=== PATIENT | male | born 1970 | race Caucasian/White ===

== ENCOUNTER 2020-02-27 20:23 | Outpatient (REF) | payer SELFPAY ==
[2020-02-27 21:36] LABS: Calculated LDL 99 mg/dL (<100); Cholesterol 165 mg/dL (<200); HDL Cholesterol 52 mg/dL (40-60); Triglyceride 72 mg/dL (<150)
[2020-02-27 21:38] LABS: Absolute Basophil Count 0.01 k/cumm (0.0-0.2); Absolute Eosinophil Count 0.07 k/cumm (0.0-0.7); Absolute Lymphocyte Count 2.25 k/cumm (1.2-3.4); Absolute Monocyte Count 0.77 k/cumm (0.11-0.7); Basophils % 0.2; Eosinophils % 1.2; HCT 39.8 % (40.0-50.0); HGB 14.4 g/dL (13.5-17.5); Lymphocytes % 39.5; Mean Corp. HGB Concentration 36.2 g/dL (32.0-36.0); Mean Corpuscular Hemoglobin 35.4 pg (27.0-33.0); Mean Corpuscular Volume 97.8 fL (80-95); Monocytes % 13.5; Neutrophils % 45.6; Platelet Count 306 x1000/uL (130-400); RBC 4.07 m/cumm (4.50-6.00); RBC Distribution Width 11.6 % (11.8-14.1)
== END 2020-02-27 20:43 ==
LOC: NCHCN 20:23
PROVIDERS: PCP Nurse Practitioner Family; Visit Provider Nurse Practitioner Family
DX: I10 Essential (primary) hypertension (principal)
CPT/HCPCS: 80061; 85025

== ENCOUNTER 2020-03-04 20:34 | Outpatient (REF) | payer SELFPAY ==
[2020-03-04 20:34] LABS: ALT 71 U/L (16-63); AST 45 U/L (15-37); Albumin 4.2 g/dL (3.4-5.0); Alkaline Phosphatase 102 U/L (46-116); Amylase 38 U/L (25-115); Anion Gap 7.3 mmol/L (3-11); BUN 14 mg/dL (7-18); Bilirubin, Total 0.9 mg/dL (0.2-1.0); CO2 28.7 mmol/L (21.0-32.0); CREATININE 0.89 mg/dL (0.70-1.30); Calcium 9.7 mg/dL (8.5-10.1); Chloride 100 mmol/L (98-107); Glucose 224 mg/dL (74-106); Lipase 55 U/L (73-393); Potassium 4.1 mmol/L (3.5-5.1); Sodium 136 mmol/L (136-145); TSH (W/Ref FT4) 1.25 uIU/mL (0.36-3.74); Total Protein 7.9 g/dL (6.4-8.2)
== END 2020-03-04 20:54 ==
LOC: LBN 20:34
PROVIDERS: PCP Nurse Practitioner Family; Visit Provider Nurse Practitioner Family
DX: E11.9 Type 2 diabetes mellitus without complications (principal); R63.4 Abnormal weight loss; R10.9 Unspecified abdominal pain
CPT/HCPCS: 80053; 83690; 82150; 84443

== ENCOUNTER 2020-03-08 03:17 | Outpatient (CLI) | payer SELFPAY ==
[2020-03-08 16:48] LABS: Hemoglobin A1C 10.1 % (3.8-5.6)
[2020-03-13 07:47] LABS: GAD65 Ab Assay 0.03 nmol/L (<= 0.02)
== END 2020-03-08 03:37 ==
PROVIDERS: PCP Nurse Practitioner Family; Visit Provider Nurse Practitioner Family
DX: E11.9 Type 2 diabetes mellitus without complications (principal)
CPT/HCPCS: 36415; 86341; 83036; 86337

== ENCOUNTER 2020-03-11 01:10 | Outpatient (CLI) | payer SELFPAY ==
--- NOTE | 2020-03-11 07:32 | DI.CT_ITS ---
EXAM: CT ABD WO/ABD PEL W CLINICAL HISTORY: R/O PANCREATIC CA,ABD PAIN,WT LOSS,NEW DIABETIC TECHNIQUE: Imaging Protocol: Axial computed tomography images with coronal and sagittal reformatted images were created and reviewed CONTRAST MATERIAL: Intravenous: Omnipaque 350 Contrast volume:100 mL Oral: Yes COMPARISON: No exams were available for comparison FINDINGS: ABDOMEN: Lung Bases: Normal where visualized. Liver: Normal density. No measurable mass. Portal, Superior Mesenteric, and Splenic Veins: Unremarkable. Gallbladder and Biliary Tract: No radiodense calculus or dilation. Pancreas: Normal density, no abnormal calcifications or inflammatory process. Spleen: Normal. Adrenals: No masses seen. Kidneys: Normal size, contour and axis. No radiodense stones or obstructive uropathy. No masses seen. Abdominal Aorta: Abdominal portion non-dilated. Atherosclerosis. Bowel: No obstruction or bowel wall thickening. Appendix is unremarkable. Colonic diverticulosis but no evidence of acute diverticulitis Peritoneal Cavity: No ascites, collection or mesenteric inflammatory response. Lymph Nodes: Within normal limits. Bones: Degenerative changes are present in the spine. Soft Tissues: Unremarkable. PELVIS: Bladder: Symmetric distention, no gross wall thickening. Reproductive Organs: Unremarkable as visualized. Lymph Nodes: Within normal limits. Bones: Degenerative changes are seen in the spine. IMPRESSION: 1. No evidence of a pancreatic mass. 2. Colonic diverticulosis but no evidence of acute diverticulitis. RADIATION DOSE DELIVERED: 1,316.71mGy.cm Total DLP 1,316.71mGy.cm Total DLP 1,316.71mGy.cm Total DLP DATA REPOSITORY: All CT scans at this facility are submitted to the National Radiology Data Registry (NRDR) Dose Index Registry (DIR) with the [employer] ([employer]). RADIATION OPTIMIZATION: All CT scans at this facility use at least one of these dose optimization te chniques: automated exposure control; mA and/or kV adjustment per patient size (includes targeted exa ms where dose is matched to clinical indication); or iterative reconstruction.
[2020-03-11] MEDS: Omnipaque 350 MG/ML 50 ML BTL PO (08:30)
[2020-03-11] MEDS: Breeza Beverage 473 ML BTL PO (08:32)
[2020-03-11] MEDS: Omnipaque 350 MG/ML 100 ML BTL IJ (10:16)
== END 2020-03-11 01:30 ==
PROVIDERS: PCP Nurse Practitioner Family; Visit Provider Nurse Practitioner Family
DX: R10.9 Unspecified abdominal pain (principal); R63.4 Abnormal weight loss; E11.9 Type 2 diabetes mellitus without complications; K57.30 Diverticulosis of large intestine without perforation or abscess without bleeding
CPT/HCPCS: 74178; J3490; Q9967

== ENCOUNTER 2020-05-15 07:20 | Outpatient (CLI) | payer SELFPAY ==
[2020-05-16 23:39] LABS: COVID-19 RT-PCR Result NEGATIVE (Negative)
== END 2020-05-15 07:40 ==
PROVIDERS: PCP Nurse Practitioner Family; Visit Provider Surgery
DX: Z01.818 Encounter for other preprocedural examination (principal)
CPT/HCPCS: U0003

== ENCOUNTER 2020-05-19 10:18 | Day surgery (SDC) | payer SELFPAY ==
--- NOTE | 2020-05-19 06:49 | ENDO_ITS ---
Date of service: 05/19/20 Time of Service: 11:48 Endoscopy Report DATE OF PROCEDURE: 05/19/20 PRE-OP DIAGNOSIS: Abdominal pain POST-OP DIAGNOSIS: other (Gastritis, esophagitis, diverticulosis and one polyp) PROCEDURE: 1. EGD with biopsies 2. Colonoscopy with polypectomy SURGEON: Kylah Vasquez ANESTHESIA: other (General/ASA 2/Joaquina Muhammad, PAOLO) PATHOLOGY: other (Multiple gastric bx, GE junction bx, sigmoid polyp) COMPLICATIONS: None DISPOSITION: same day INDICATIONS: Mr. Murray is a pleasant 50-year-old gentleman who is been having abdominal pain since October. The pain sounds more nerve related and I wonder whether there is some nerve impingement. He has lost weight which has been unintentional although I think the patient is not eating very much due to the pain and that is probably why he has lost weight. He does not really have any GI symptoms. He has not had any melena, hematochezia, dyspepsia or GERD. Because he has lost weight I feel it is reasonable to do an upper endoscopy and colonoscopy although I do not think that I will find anything. He is also 50 years old so he is due for a colonoscopy at this point. PREP: Miralax/Dulcolax PROCEDURE START TIME: 11:48 PROCEDURE END TIME: 12:23 COLONOSCOPY RETRACTION TIME: 15 minutes FINDINGS: Upper- moderate inflammation of the stomach, mild inflammation of the esophagus Lower- diverticulosis, one small polyp PROCEDURE DESCRIPTION: After informed consent was obtained the patient was take to the procedure room and placed in a supine position. Monitors were applied and a time out was done. The patients name, date of , procedure type, allergies to medications and metal in their body was reviewed. A bite block was placed and the patient was sedated. Once sedated and comfortable the gastroscope was advanced through the oropharynx which was grossly normal into the esophagus. The proximal and mid- esophagus were normal. In the distal esophagus there was mild inflammation noted. The scope was advanced into the stomach and through the pylorus into the 3rd portion of the duodenum. The duodenum was noted to be normal. The scope was retracted back into the stomach. There was moderate to severe inflammation throughout the stomach. Biopsies were done of the pylorus, antrum and body of the stomach to rule out H. pylori. There were no ulcers. The scope was retro- flexed. There was inflammation of the cardia and fundus. There was no hiatal hernia noted. The scope was retracted back into the esophagus. There was evidence of reflux with mild inflammation. Biopsies were done of the GE junction to rule out Dong's. The Z line was regular. The GE junction was at 36 cm. While the patient was still sedated they were placed in a left decubitous position. A rectal exam was done. External exam was normal. Internal exam revealed a normal sphincter tone and no palpable masses. The prostate felt slightly enlarged but smooth. The scope was then introduced and retro-flexed. No internal hemorrhoids were identified. The scope was then advanced to the cecum without difficulty. The ileocecal valve and appendiceal orifice were identified. The prep was good. The scope was then slowly retracted over 15 minutes back into the rectum. There was a small benign appearing polyp in the sigmoid colon which was removed with cold forceps. There was moderate diverticulosis of the descending and sigmoid colon. The scope was removed and the patient was woken up and taken back to Same day surgery in stable condition. The patient tolerated the procedure well and there were no immediate complications. Follow up: I will see him back in 2 weeks. I will start him on omeprazole for his gastritis. I do not believe that his pain is from the gastritis. I strongly feel that it is neurogenic pain. I recommend staring him bacl on gabapentin and increasing his dose. He may also benefit from a neurologist consult and possibly an MRI.
--- NOTE | 2020-05-19 06:50 | PDOC.DSDIS_ITS ---
Discharge Plan Disposition Patient Disposition: HOME Condition: Good Discharge Details Reason For Visit: Abdominal pain Attending Provider: Kylah Vasquez Primary Care Provider: Renetta Prajapati Home Meds and New Rx's Prescriptions: New omeprazole 40 mg capsule,delayed release(DR/EC) 40 mg PO DAILY Qty: 30 RF: 5 Continued metformin 1,000 mg tablet 500 mg PO TID Qty: 90 RF: 0 cyclobenzaprine 10 mg tablet 10 mg PO TID PRN (Reason: pain) Qty: 90 RF: 0 losartan 50 mg tablet 50 mg PO DAILY Qty: 90 RF: 4 Discontinued bisacodyl [Dulcolax (bisacodyl)] 5 mg tablet,delayed release (DR/EC) 5 mg PO ONCE Qty: 4 RF: 0 polyethylene glycol 3350 17 gram powder in packet 255 g PO DAILY Qty: 15 RF: 0 Discharge Instructions Instructions: Gastritis (DC), Diet for Stomach Ulcers and Gastritis (ED), Gastroesophageal Reflux Disease (DC), Diverticulosis (DC) Additional Instructions: Findings: inflammation of the stomach and mild inflammation of the esophagus Large bowl- diverticulosis and 1 benign appearing polyp Follow up: Most likely 10 years for your next colonoscopy Please call if you develop: fevers >101.5 Nausea or Vomiting Abdominal pain that is not transient DAY SURGERY UNIT POST ENDOSCOPY INSTRUCTIONS 1. Because there will be medication in your system for the next 24 hours, you may feel a little sleepy. Your coordination will be affected. Therefore: a. Do not drive or operate dangerous equipment for 24 hours. b. Do not drink alcohol beverages for 24 hours (not even beer). c. Plan to go home and rest for the day. 2. Generally there are no restrictions on your activity after a day or so has gone by, but you may feel a bit fatigued for a few days. 3 After you arrive home you may have a light meal and return to a normal diet as you can tolerate it without feeling sick to your stomach. 4. After surgery, you may feel pain or discomfort. This should be only transient, but if it persists please contact your doctor. 5. If there are any questions regarding the findings of your procedure, please feel free to contact your doctor. 6. If you are unable to contact your doctor with a problem, contact the hospital at [phone]. 7. Continue all your regular medications unless directed otherwise. I understand the above instructions and have no questions. Signature of Patient or Responsible Adult Escort Date/Time Name of Responsible Adult Escort Signature of Nurse Date/Time Referrals: Kylah Vasquez MD [ [facility] STAFF PHYSICIAN] - Activity:: Activity as Tolerated Diet:: high Fiber Discharge Orders Discharge Orders: Discharge Order (Routine); Ordered 05/19/20 Ordered By: Kylah Vasquez
[2020-05-19 10:28] VITALS: PULSE 105; RESP 16; TEMP 36.4; O2SAT 99
[2020-05-19] MEDS: Lactated Ringers 1,000 ML 80 ML IV (10:50)
--- NOTE | 2020-05-19 11:50 | STOM_PTH ---
PATIENT: Franklin Murray LOC: [facility] U#:[id number] AGE/SX: 50/M ROOM: RE05/19/[address]: Kylah Vasquez MD : 1970 BED: DIS: 05/19/2020 SPEC #: [id number] RECD: 05/19/20 12:59 STATUS: GAMALIEL RE #: [id number] MICHELLE: 05/19/20 11:[address]: Kylah Vasquez DEPT: Surgical Specimen RECD BY: Emily Yang ENTERED: 05/19/20 13:02 SP TYPE: STOMACH OTHR DR: Renetta Prajapati, [employer] HELPER Tissues: 1 - STOMACH BIOPSY 2 - STOMACH BIOPSY 3 - STOMACH BIOPSY 4 - ESOPHAGUS BIOPSY 5 - BIOPSY BOWEL Procedures: GROSS AND MICRO LEVEL 4 Comments: [id number]
[2020-05-19 13:01] VITALS: BP 133/74; PULSE 86; RESP 17; TEMP 36.5; O2SAT 100
== END 2020-05-19 13:18 | disposition home or self-care (01) ==
PROVIDERS: PCP Nurse Practitioner Family; Visit Provider Surgery
PROC: (CPT 45380; principal; 2020-05-19 12:00)
DX: R10.9 Unspecified abdominal pain (principal); K63.5 Polyp of colon; K57.30 Diverticulosis of large intestine without perforation or abscess without bleeding; K29.70 Gastritis, unspecified, without bleeding; B96.81 Helicobacter pylori [H. pylori] as the cause of diseases classified elsewhere; K21.0 Gastro-esophageal reflux disease with esophagitis; K22.70 Barrett's esophagus without dysplasia; I10 Essential (primary) hypertension; E13.9 Other specified diabetes mellitus without complications
CPT/HCPCS: 45380; 43239; 88305; J2704

== ENCOUNTER → 2020-06-24 02:53 | Outpatient (CLI) | payer SELFPAY ==
[2020-06-24 07:29] LABS: HCT 39.1 % (40.0-50.0); MCH 33.7 pg (27.0-33.0); MCHC 35.8 % (32.0-36.0); MCV 94.2 fL (80-95); MPV 9.6 fL (8.0-11.0); Platelet Count 400 10^3/uL (130-400); RBC 4.15 10^6/uL (4.36-5.78); RDW 11.5 % (11.8-14.1); RDW-SD 39.7 fL; WBC 5.79 10^3/uL (4.4-10.8)
[2020-06-24 08:10] LABS: ALT 36 U/L (16-63); AST 20 U/L (15-37); Albumin 4.3 g/dL (3.4-5.0); Alkaline Phosphatase 80 U/L (46-116); Anion Gap 7.4 mmol/L (3-11); BUN 17 mg/dL (7-18); Bilirubin, Total 0.8 mg/dL (0.2-1.0); CO2 30.6 mmol/L (21.0-32.0); CREATININE 0.85 mg/dL (0.70-1.30); Calcium 9.7 mg/dL (8.5-10.1); Chloride 98 mmol/L (98-107); Glucose 175 mg/dL (74-106); Potassium 4.1 mmol/L (3.5-5.1); Sodium 136 mmol/L (136-145); Total Protein 7.5 g/dL (6.4-8.2)
[2020-06-24 08:14] LABS: ESR 21 mm/hr (1-20)
== END ==
PROVIDERS: PCP Nurse Practitioner Family; Visit Provider Nurse Practitioner Family
DX: R10.31 Right lower quadrant pain (principal); R10.32 Left lower quadrant pain; G89.29 Other chronic pain
CPT/HCPCS: 36415; 80053; 85027; 85652

== ENCOUNTER → 2020-09-03 18:14 | Outpatient (REF) | payer SELFPAY ==
[2020-09-06 09:29] LABS: Hepatitis C Ab w Rflx HCV PCR Negative (Negative)
[2020-09-06 09:46] LABS: HIV-1/2 Ag & Ab Screen Negative (Negative)
== END ==
LOC: LBN 18:14
PROVIDERS: PCP Nurse Practitioner Family; Visit Provider Nurse Practitioner Family
DX: G89.29 Other chronic pain (principal); R10.31 Right lower quadrant pain; R10.32 Left lower quadrant pain; R63.4 Abnormal weight loss
CPT/HCPCS: 86803; 87389

== ENCOUNTER 2021-02-09 07:53 | Outpatient (RCR) | payer SELFPAY ==
--- NOTE | 2021-02-09 07:15 | HOLTER_ITS ---
APPROVED REPORT Conclusion This is a 48-hour monitor ordered for indication of tachycardia. Patient was in normal sinus rhythm for the majority of the recording with an average heart rate of 95 bpm (65???129) There were no episodes of ventricular tachycardia and 1 brief episode of supraventricular tachycardia lasting 15 beats. There were rare PACs and rare PVCs. There were no episodes of atrial fibrillation, no pauses greater than 3 seconds and no evidence of hi gh degree heart block. There was 1 patient triggered event associated with sinus rhythm.
== END 2021-02-28 23:59 | disposition home or self-care (01) ==
LOC: RT 07:53
PROVIDERS: PCP Nurse Practitioner Family; Visit Provider Nurse Practitioner Family
DX: R00.0 Tachycardia, unspecified (principal); I47.1 Supraventricular tachycardia
CPT/HCPCS: 93225; 93226

== ENCOUNTER 2024-09-05 11:46 | Emergency (ER) | payer SELFPAY ==
--- NOTE | 2024-09-05 11:45 | RT.EKG_ITS ---
APPROVED REPORT Exam: Resting ECG Reason for Exam: HTN Patient Location: E HR:98 bpm ECG Measurements Heart Rate 98 AXIS MD 161 P 53 QRSd 86 QRS 49 QT 367 T 21 QTc 469 Conclusion Sinus rhythm 98 normal axis no stemi
[2024-09-05 11:52] VITALS: BP 185/112; PULSE 95; RESP 14; TEMP 36.5; O2SAT 98
--- NOTE | 2024-09-05 12:32 | W.ED.GENAD ---
Discharge Plan Disposition Patient Disposition: Against Medical Advice Condition: Stable Discharge Details Clinical Impression: Essential hypertension, Dong's esophagus, Diabetes, Acute kidney injury, Acute dehydration Primary Care Provider: Renetta Prajapati ED Provider: Gina Bradford Home Meds and New Rx's Prescriptions: New losartan 50 mg tablet 50 mg PO DAILY Qty: 60 0RF metformin 500 mg tablet 500 mg PO BID Qty: 60 0RF sucralfate [Carafate] 1 gram tablet 1 g PO QAC Qty: 60 0RF Discharge Instructions Instructions: Type 2 diabetes, Dehydration, Adult ED Additional Instructions: As we discussed, your recent abdominal upset likely is what tipped the scales and caused your diabetes to get significantly worse. Your A1c today was quite high indicating that you have had a high glucose for some time. However, the acute illness can make things significantly worse as we discussed. Particularly bad if you become dehydrated which appears like you did. You were given fluids here today. Please use the Carafate as prescribed to help with your stomach upset, this type of treatment did seem to help you be able to drink more here. Please continue with this. You have declined starting on insulin around any other type of diabetic medications but we have started your metformin once again. You are given a dose here and the rest was prescribed and sent to your pharmacy. Also restarting you on your blood pressure medication, losartan. Please take the medications as prescribed. Please continue to monitor your sugar, blood pressure at home. As we discussed, your sugar is high enough that you are at high risk to become more significantly ill and I would encourage you to return immediately with any new or worsening symptoms player. Please follow-up with your primary care next week for reevaluation. If you develop any new or worsening symptoms seek care immediately once again. Referrals: Renetta Prajapati, JOLLY [Primary Care Provider] - [facility] General Date/Time Provider Initiated Documentation: 09/05/24 12:09. Limitations to Documentation: no limitations. Information obtained by: patient, RN notes reviewed and old records reviewed. History of Present Illness 54 year old M presents to the emergency department with the chief complaint of Abdominal upset, elevated glucose, elevated blood pressure, described as moderate and similar to prior episodes, Quality is described as other (Denies having abdominal pain), and is localized to the abdomen. Patient started experiencing this day(s) and it has been intermittent. No relieving factors improve symptom(s), Eating worsens symptoms . Patient notes loss of appetite and nausea/vomiting (Induces vomiting); denies chest pain, cough, fever/chills, headaches, rash, shortness of breath and weakness. Patient did receive the following treatments prior to arrival, none Related Data Home Medications ?Medication ?Instructions ?Recorded ?Confirmed losartan 50 mg tablet 50 mg PO DAILY #60 tabs 09/05/24 metformin 500 mg tablet 500 mg PO BID #60 tabs 09/05/24 sucralfate 1 gram tablet (Carafate) 1 g PO QAC #60 tabs 09/05/24 Previous Rx's ?Medication ?Instructions ?Recorded losartan 50 mg tablet 50 mg PO DAILY #60 tabs 09/05/24 metformin 500 mg tablet 500 mg PO BID #60 tabs 09/05/24 sucralfate 1 gram tablet (Carafate) 1 g PO QAC #60 tabs 09/05/24 Allergies Allergy/AdvReac Type Severity Reaction Status Date / Time lisinopril AdvReac Mild Dry Cough, Verified 09/05/24 11:55 @10 mg+ General Stated Complaint: Nausea/Vomit/Diar KENZIE: 3 Review of Systems Constitutional Constitutional: Reports as per HPI, Denies chills, Denies fever(s) and Denies headache(s) Eyes Eyes: Denies change in vision ENT Ears, Nose, Mouth, and Throat: Denies dizziness and Denies headache(s) Cardiovascular Cardiovascular: Reports as per HPI, Denies dyspnea and Denies dyspnea on exertion Respiratory Respiratory: Reports as per HPI, Denies chest congestion, Denies cough, Denies pain on inspiration, Denies pain with cough, Denies dyspnea and Denies dyspnea on exertion Gastrointestinal Gastrointestinal: Reports as per HPI, Denies diarrhea and Denies nausea Genitourinary Genitourinary: Denies system reviewed and no additional complaints, except as documented (denies change in urinary habits) Musculoskeletal Musculoskeletal: Reports as per HPI and Denies back pain Integumentary/Breasts Skin/Breast: Reports as per HPI and Denies rash Neurologic Neurologic: Reports as per HPI, Denies dizziness and Denies headache(s) Exam Const General: cooperative, healthy appearing, comfortable, no acute distress and well developed Nutritional Appearance: average body habitus and well nourished Orientation: alert, awake and oriented x3 Resp Effort & Inspection: normal respiratory effort, able to speak in complete sentences and no respiratory distress Auscultation: clear to auscultation bilaterally, no rales, no rhonchi and no wheezes Cardio Rate: regular rate Rhythm: regular rhythm Heart Sounds: S1 normal and S2 normal GI Inspection: normal to inspection, no edema and non-distended Palpation: soft, no hepatosplenomegaly, not firm, no guarding, not rigid and nontender Auscultation: normal bowel sounds Back/Spine/Pelvis Back: no CVA tenderness Skin General skin exam: no rashes or lesions noted Trauma: no lacerations or abrasions Neuro General: patient alert, patient awake and patient oriented x3 Cognition: normal cognition Speech: speech normal Gait: normal gait Extrem General: normal to inspection, capillary refill normal, no pedal edema, no calf tenderness and normal gait Course Vital Signs Vital signs: Vital Signs Temperature 36.5 C 09/05/24 11:52 Pulse 95 H 09/05/24 11:52 Respiratory Rate 14 09/05/24 11:52 Blood Pressure 185/112 H 09/05/24 11:52 Pulse Oximetry 98 09/05/24 11:52 Temperature 36.5 C 09/05/24 11:52 Temperature Source Oral 09/05/24 11:52 Pulse 95 H 09/05/24 11:52 Respiratory Rate 14 09/05/24 11:52 Respiratory Effort Normal, Non-Labored 09/05/24 11:55 Blood Pressure 185/112 H 09/05/24 11:52 Blood Pressure Position Sitting 09/05/24 11:52 Pulse Oximetry 98 09/05/24 11:52 Oxygen Delivery Method Room Air 09/05/24 11:52 Oxygen Flow Rate 0 09/05/24 11:52 Medical Decision Making Patient is a pleasant 54-year-old gentleman with past medical history significant for hypertension, diabetes, presenting with chief complaint of early satiety, difficulty staying hydrated and medication noncompliance. Patient reports that he stopped all his medications about 3 years ago and was initially able to manage his diabetes and blood pressure with lifestyle modification. 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 His noted his glucose to be creeping up as well as his blood pressure, particularly when he is uncomfortable and anxious. Patient was seen at outside clinic today was notably hypertensive and have a glucose of 600 and prompting them to send him to the emergency department. He denies any chest pain or shortness of breath. States he is not nauseated does not actually having spontaneous emesis. Rather, he has a sensation of being very full and that his food is not moving forward prompting him to induce vomiting. He denies any change in bowel or bladder habits. Has not had any chronic weight loss but states that he is lost some weight over the past few days due to his GI upset and inability stay hydrated. He states that he does weigh himself daily. He has not been on any of his medications has not been followed by his primary care. Patient endorses drinking 3-4 drinks daily. Has not done so over the past 24 hours secondary to his GI discomfort but states that he does not have any withdrawal symptoms. Patient has had issues like this historically prompting to have an upper endoscopy which was significant for gastritis, esophagitis and diverticulosis. On exam, patient appears nontoxic. He is resting comfortably no acute distress. Hemodynamically stable. He is hypertensive this and anxious and states when he checks the blood pressure at home is never high like this, I am hesitant to yeller him to precipitously and will try to treat his underlying symptoms and reassess his blood pressure. Abdominal exam is benign. No tenderness elicited with palpation. Normal cardiac exam, lungs are clear. He denies any cardiac history. This patient's not having any abdominal pain, no change in bowel or bladder habits, passing flatus, and does see indication of bowel obstruction. No CP or SOB to suggest ACS. He has had elevated BP but he reports it is normal when not in [id number] setting or acutely ill/uncomfortable. concerned that A1C at outside facility 12.5, he wants to start on metforamin but not other medications, does not want to use insulin. CBC obtained. Stable H&H. White count in normal limits. CMP with again for a pleasant 3.8, CO2 of 22.3, gap of 25.7, BUN of 27, creatinine 1.8, glucose of 586. Lipase within normal limits. Will add on a VBG. Patient did have a UA at the urgent care and was found to have ketones in his urine. Patient does not appear to be in DKA however,, considered HHS. VBG obtained, normal pH, pCO2 36, bicarb 22. Discussed these findings with the patient, discussed potential for HHS. Patient reports that he do not begin on insulin because he is not currently insured and has discussed this in the past with primary care is concerned about cost. He is also unwilling to stay in the hospital because his mother is sick and he is her primary caregiver. He is amenable to speaking with the senior mortgage underwriter to try and come up with a treatment plan that we will align with his goals. Will begin him once again on metformin but ultimately, patient will need more intervention. Patient has received 1 L IV fluids, after having p.o. Mylanta his stomach upset has improved. Is also given IV Protonix. He is now able to drink more without having gotten feeling of early satiety and is finding that he can keep more down. Patient I discussed medication management of his diabetes and hypertension several times at his visit here. Based on previous experiences has had with clinicians, patient is very hesitant to begin any type of medication yet again. He would prefer rather to try to manage things as best as he can at home. He did meet with office director. They did discuss a diet, glucose monitoring as well as insulin and patient continues to decline further intervention aside from metformin at this time. Patient is appropriate and demonstrates capacity to make this decision. I do not note evidence to suggest hemodynamic instability with his illness. His glucose has come down with fluids to 475 is significantly closer to his baseline. He did take the metformin here. Regard to the blood pressure, again patient is hesitant to begin medications but was agreeable to beginning the medication he was on historically. I did review his chart he has had issues with lisinopril in the past with did do well with losartan, gave dosing of this. Will begin the patient on Carafate hoping that this will also help with his GI symptoms and allow him to continue to hydrate and take in food more appropriately. I encourage close follow-up with primary care next week and for him to return immediately should he develop any new or worsening symptoms. Information was provided by the senior mortgage underwriter and patient was also given information for insurance options. As his current symptoms could be associated with HHS or other acute diabetic instability, patient will be leaving AGAINST MEDICAL ADVICE which patient is aware of. He does live locally and is able to return should he develop any new or worsening symptoms. However, patient is not able to stay given his home situation and again, continues to refuse further medication management at this point. All of his questions and concerns were addressed and patient is in agreement this plan. This documentation was generated using [employer] system, please disregard any oddities of phrase or misspellings. Quality:SDOH Health Related Social Needs: No Data to Display PFSH All Active Problems (Updated 09/05/24 @ 15:00 by YOMI Worthington) Acute dehydration (Acute) Acute kidney injury (Acute) Diabetes (Chronic) Dong's esophagus (Acute) Chronic bilateral lower abdominal pain (Chronic) Neuropathy (Acute) Unintentional weight loss (Acute) Diabetes mellitus type 1.5 (Chronic) Essential hypertension (Chronic) Medical History Dong's esophagus Chronic bilateral lower abdominal pain Diabetes mellitus type 1.5 Diverticulosis of colon Essential hypertension H. pylori infection On EGD 05/20, repeat EGD 08/20 negative for H.Pylori Surgical History History of esophagogastroduodenoscopy (EGD) (08/13/20) S/P colonoscopy (05/19/20) S/P excision of varicocele Family History Mother No problems noted. Father No problems noted. Brother Prostate cancer Brother Hypertension Brother Hypertension Brother Colon cancer Maternal Grandfather , at 70 Dementia Alcohol abuse Maternal Grandmother , at 84 Hypertension Hyperlipidemia Heart disease Paternal Grandfather COPD (chronic obstructive pulmonary disease) Paternal Grandmother COPD (chronic obstructive pulmonary disease) Social History Smoking/Tobacco Use Status: Never Smoking risk assessment performed?: Yes Alcohol Intake: former Drug use: Never Substance use type: does not use Household members: none Housing: apartment Number of Children: 0 current occupation: [employer] Current gender identity: male What is your relationship status?: Panel score (0-1 are the most socially isolated patients): 0 What type of physical activity do you participate in: independent ambulation Do you feel safe at home: Yes Do you feel safe in your relationship?: Yes PAWSS Have you Been Recently Intoxicated or Drunk Within the Last 30 days?: No Have you Ever Experienced Previous Episodes of Alcohol Withdrawal?: No Have you ever Experienced Withdrawal Seizures?: No Have you ever Experienced Delirium Tremens(DT)s?: No Have you ever undergone Alcohol Rehabilitation Treatment (i.e, inpt ot outpatient treatment programs)?: No Have you ever Experienced Blackouts?: No Have you ever Combined Alcohol with other Downers within the last 90 days?: No Have you ever Combined Alcohol with any other Substance of Abuse during the last 90 days?: No Positive Blood Alcohol level on Presentation? [PCS.BAL]: No Evidence of Increased Autonomic Activity (i.e. HR>120, tremor, sweating, agitation, nausea)?: No Result: 0
[2024-09-05 12:35] LABS: Abs Immature Grans 0.02 10^3/uL (0.0-0.06); Absolute Basophil Count 0.02 10^3/uL (0.0-0.2); Absolute Lymphocyte Count 0.89 10^3/uL (1.2-3.4); Absolute Monocyte Count 0.68 10^3/uL (0.1-0.8); Absolute Neutrophil Count 5.71 10^3/uL (1.2-6.7); Basophils % 0.3 %; HCT 42.4 % (40.0-50.0); HGB 15.3 g/dL (13.5-17.5); Immature Grans % 0.3 %; Lymphocytes % 12.2 %; MCH 35.3 pg (27.0-33.0); MCHC 36.1 % (32.0-36.0); MCV 98 fL (80-95); MPV 10.2 fL (8.0-11.0); Monocytes % 9.3 %; Neutrophils % 77.9 %; Platelet Count 333 10^3/uL (130-400); RBC 4.34 10^6/uL (4.36-5.78); RDW 11.8 % (11.8-14.1); RDW-SD 42.4 fL; WBC 7.32 10^3/uL (4.4-10.8)
[2024-09-05] MEDS: Mylanta Suspension 30 ML CUP PO (12:43)
[2024-09-05 12:44] VITALS: PULSE 88; RESP 19; O2SAT 100
[2024-09-05 12:46] VITALS: BP 175/109; PULSE 91; PULSE 92; RESP 21; O2SAT 100
[2024-09-05] MEDS: Pantoprazole 40 MG VIAL IVP (12:46)
[2024-09-05] MEDS: Lactated Ringers 1,000 ML 1000 ML IV (12:47)
[2024-09-05 13:09] LABS: ALT 56 U/L (16-63); AST 37 U/L (15-37); Albumin 4.7 g/dL (3.4-5.0); Alkaline Phosphatase 130 U/L (46-116); Anion Gap 25.7 mmol/L (3-11); BUN 27 mg/dL (7-18); Bilirubin, Total 1.91 mg/dL (0.2-1.0); CO2 22.3 mmol/L (21.0-32.0); CREATININE 1.8 mg/dL (0.70-1.30); Calcium 9.7 mg/dL (8.5-10.1); Chloride 85 mmol/L (98-107); Lipase 24 U/L (<78); Magnesium 2.2 mg/dL (1.8-2.4); Potassium 3.8 mmol/L (3.5-5.1); Sodium 133 mmol/L (136-145); Troponin I 7 ng/L (<or=76)
[2024-09-05 13:12] LABS: Glucose 586 mg/dL (74-106)
[2024-09-05 13:44] LABS: BE (Venous) -3 mmol/L (-2-3); HCO3 (Venous) 22 mmol/L (23-28); O2 Sat (Venous) 66 %; TCO2 (Venous) 20 mmol/L (24-29); pCO2 (Venous) 36 mmHg (41-51); pO2 (Venous) 36 mmHg
[2024-09-05] MEDS: metFORMIN 500 MG TAB PO (13:57)
[2024-09-05 14:07] LABS: Troponin I 7 ng/L (<or=76)
--- NOTE | 2024-09-05 14:36 | W.NUTRFU ---
Date of service: 09/05/24 Time of Service: 14:10 Nutrition Note NOTE: Received call from nursing in ER, requesting diabetes management consult with pt currently in Room 5 for DKA (glucose >600 on presentation) Nursing informed me and patient affirms that he basically stopped managing his diabetes not too long ago after he was overwhelmed of the monthly miller of a new cardiac medication his doctor had prescribed. Along with this his brother had recently and he stresses over focusing on taking care of his mother's health needs. He states he has significantly better management of glucose and blood pressure and was getting off multiple meds before he had this episode of diabetes distress and for lack of better words, took a vacation from managing his glucose. He doesn't currently check his glucose but has a meter and doesn't mind buying strips as long as he doesn't have to check too often. I encouraged at least a fasting check and then again at bedtime, but ideally, even for a week or two, 2 hours after meals as well. I offered free CGM for him today with follow up to go over his glucose patterns for making management decisions and he doesn't have a phone that is capable of working with the aggregate conveyor operator (I will approach rep to see if I can get some receivers soon). We reviewed insulin may be necessary He reports a good knowledge of how foods impact glucose - we reviewed some points and suggested a 200g goal for total carbohydrates. He seems on board for restarting metformin, as this is inexpensive at [facility] - just need to be sure his GFR is in a good spot at 45 or higher. He seems to want to wait on insulin for now and feels with metformin and reinvesting in diet changes will be helpful. With his hx of 1.5 diabetes with positive antibodies in the past - insulin may very well be needed for ideal glucose mgt Gave him [facility] reli-on program for inexpensive testing strips and can consider insulin - even a 70/30 mixed insulin mid would be a possible managing approach. Pt took my card - he declined to set up outpatient appt at this time but states he will once he is through this ER ordeal and back at home at baseline. Will remain available for support, education and management recommendations. Time Spent in Nutritional Counseling and Treatment: 20 minutes
[2024-09-05] MEDS: Losartan 25 MG TAB 50 MG PO (16:24)
== END 2024-09-05 15:39 | disposition left against medical advice (07) ==
PROVIDERS: Emergency Provider Physician Assistant; PCP Nurse Practitioner Family
DX: I10 Essential (primary) hypertension (principal); E11.69 Type 2 diabetes mellitus with other specified complication; K22.719 Barrett's esophagus with dysplasia, unspecified; N17.9 Acute kidney failure, unspecified; E86.0 Dehydration; Z53.21 Procedure and treatment not carried out due to patient leaving prior to being seen by health care provider; Z74.8 Other problems related to care provider dependency
CPT/HCPCS: 00123; 36416; 80053; 82805; 82962; 83690; 93005; 96361; 96374; 99284; 83735; 84484; 85025; 93010; 99285; J2470

== ENCOUNTER 2024-11-18 14:55 | Outpatient (CLI) | payer OTHER, SELFPAY ==
[2024-11-18 13:18] LABS: COMMENT (LAB VIEW ONLY) 93.38 mg/dL; Microalb ug/mg Crea 11.4 ug/mg Cr
[2024-11-18 13:40] LABS: ALT 24 U/L (16-63); AST 24 U/L (15-37); Alkaline Phosphatase 84 U/L (46-116); BUN 12 mg/dL (7-18); Bilirubin, Total 0.63 mg/dL (0.2-1.0); CREATININE 0.9 mg/dL (0.70-1.30); Calcium 9.1 mg/dL (8.5-10.1); Calculated LDL 82 mg/dL (<100); Chloride 104 mmol/L (98-107); Cholesterol 144 mg/dL (<200); Estimated GFR 100.86 (mL/min/1.73m2); Glucose 90 mg/dL (74-106); HDL Cholesterol 50 mg/dL (40-60); Potassium 4.6 mmol/L (3.5-5.1); Sodium 141 mmol/L (136-145); Triglyceride 60 mg/dL (<150)
== END 2024-11-18 14:56 | disposition home or self-care (01) ==
LOC: LBO 14:57
PROVIDERS: PCP Family Medicine; Visit Provider Family Medicine
DX: E11.9 Type 2 diabetes mellitus without complications (principal); E13.40 Other specified diabetes mellitus with diabetic neuropathy, unspecified; Z00.00 Encounter for general adult medical examination without abnormal findings
CPT/HCPCS: 36415; 80053; 80061; 82043; 82570

== ENCOUNTER 2025-03-02 10:29 | Day surgery (SDC) | payer OTHER, SELFPAY ==
--- NOTE | 2025-03-01 16:14 | W.PM.DSUDISC ---
Date of service: 03/02/25 Discharge Plan Disposition Patient Disposition: Home Condition: Good Discharge Details Reason For Visit: EGD Attending Provider: Eddie Best Primary Care Provider: Smiley Abebe Home Meds and New Rx's Prescriptions: Continued losartan 50 mg tablet 50 mg PO BID Qty: 60 5RF metformin 500 mg tablet 1,000 mg PO BID Qty: 120 12RF aspirin 81 mg tablet,delayed release (DR/EC) 81 mg PO DAILY Discharge Instructions Instructions: Hiatal hernia, Gastritis Additional Instructions: Franklin, was good seeing you today, and I hope you make a quick recovery after the procedure. Things went very smoothly. You have a fair amount of inflammation in your stomach, that seems fairly consistent with what was observed during your last EGD. I did several biopsies of this, and I wonder if you have a recurrent case of H. pylori gastritis. I will ask the pathologist in particular to test for that. He also have signs of a hiatal hernia. This occurs when the top part of your stomach slips above your diaphragm. The actual connection of your esophagus onto your stomach looks fairly benign. Honestly, as we discussed in the office, I do not think it appears particularly consistent with Dong's esophagus, but appearances can be deceiving. I did do some biopsies here similar to what you have had done before. All of these biopsy results will take a week or 2 to get back, and once my office has had information we will be in touch with any other recommendations. If you have any other questions in the meantime, please do not hesitate to 1. If tolerated, consume a soft, low fiber diet for 1-2 days. [address] Do not drive, drink alcohol, operate machinery, make critical decisions, or do activities that require coordination or balance for 24 hours. 3. Because air was put into your colon during the procedure, expelling air from your rectum (passing gas or farting) is normal. 4. You may not have a bowel movement for 1-3 days because of the colonoscopy prep. This is normal. 5. Go directly to the emergency room if you notice any of the following: Develop chills (warm to touch), or if you have a thermometer and your temperature is above 101 Difficulty breathing or difficultly swallowing Persistent vomiting Severe abdominal pain, other than gas cramps Severe chest pain Black, tarry stools Any bleeding ? exceeding one tablespoon 6. Call your physician if the site where your intravenous was started becomes red, swollen, painful, and warm to touch. 7. Your physician has reviewed your pre-procedure medications. Please continue to take those medications as previously ordered. You will be given specific information/education regarding any changes to your medications before leaving. Activity:: Activity as Tolerated Discharge Orders Discharge Orders: Discharge Order (Routine); Ordered 03/01/25 Ordered By: Eddie Best DS: Diagnosis Discharge Diagnosis (1) Dong's esophagus: Status: Acute Asessment and Plan: Gastritis with grade 3 hiatal hernia; follow-up on biopsy results
--- NOTE | 2025-03-01 16:15 | W.PM.ENDDOP ---
Date of service: 03/02/25 Time of Service: 12:59 Endoscopy Report DATE OF PROCEDURE: 03/02/25 PRE-OP DIAGNOSIS: Barretts esophagus POST-OP DIAGNOSIS: other (Grade 3 hiatal hernia, gastritis) PROCEDURE: EGD with biopsies SURGEON: Eddie Best ANESTHESIA TYPE: General:No Airway ESTIMATED BLOOD LOSS: 5 PATHOLOGY: other (Gastric antrum, gastric ulcers, GE junction) COMPLICATIONS: None DISPOSITION: same day INDICATIONS: Franklin is a 55 year old man with a diagnosis of Barretts esophagus. He needs follow up EGD PROCEDURE START TIME: 12:41 PROCEDURE END TIME: 12:48 FINDINGS: Diffuse gastritis. Grade 3 hiatal hernia with GE junction at 38 cm PROCEDURE DESCRIPTION: After the initiation of anesthesia, and with the assistance of a bite block, I advanced a standard gastroscope through the mouth past the hypopharynx and into the esophagus.? Under the direct vision of the scope, I advanced down the esophagus towards the stomach. The upper, mid, and lower esophagus were all normal-appearing. There is evidence of hiatal hernia. The Z-line is fairly regular, and the GE junction measures 38 cm beyond the incisors. I advanced beyond this, perform retroflexion. There is a grade 3 hiatal hernia. Within the main portion of the gastric body are several areas of punctate ulceration. There is no active bleeding. All of the ulcers are well less than 1 cm in size, and all are flat. I advanced down be in the incisura angularis, and through the pylorus into the duodenum. The duodenal bulb was normal. The villi are obvious, and there are no signs of any celiac disease. There is no evidence of any bleeding anywhere in the duodenum. I brought the camera back up into the stomach and perform some random biopsies of the gastric antrum using cold forceps. I also performed multiple biopsies of the gastric ulceration with cold forceps. Finally, I brought the camera back up to the Z-line, and performed biopsies of the GE junction to rule out Dong's. Once this was complete, advance the camera back down into the stomach and emptied it completely. I brought the camera out along the length of the esophagus 1 last time. No other abnormalities were appreciated.
[2025-03-02 10:55] VITALS: BP 154/99; PULSE 101; RESP 16; TEMP 36.2; O2SAT 99
[2025-03-02] MEDS: Lactated Ringers 1,000 ML 80 ML IV (11:12)
--- NOTE | 2025-03-02 12:09 | ANES.PREOP_ITS ---
General Info Date of Service Date Performed: 03/02/25 Height: 5 ft 6 in Weight: 78.8 kg Body Mass Index (BMI): 28.0 Surgical Procedure: Operation Date: 03/02/25 12:05 Proposed Procedure Side Surgeon p Gastroscopy Eddie Best MD Meds Allergies and Home Medications Allergies Allergy/AdvReac Type Severity Reaction Status Date / Time lisinopril AdvReac Mild Dry Cough, Verified 03/02/25 10:49 @10 mg+ Home Medication ?Medication ?Instructions ?Recorded aspirin 81 mg tablet,delayed 81 mg PO DAILY 11/21/24 release losartan 50 mg tablet 50 mg PO BID #60 tabs 11/21/24 metformin 500 mg tablet 1,000 mg (2 x 500 mg) PO BID #120 11/21/24 tabs Current Visit Medications: Current Medications Generic Name Dose Route Start Last Admin Trade Name Freq PRN Reason Stop Dose Admin Ringer's Solution 1,000 mls @ 80 mls/hr 03/02/25 06:00 03/02/25 11:12 IV 03/02/25 23:59 80 mls/hr INFUSION LESLEY Administration IV Miscellaneous Supplies 1 each 03/02/25 06:00 Iv Access IV 03/02/25 23:59 DIRECTED LESLEY Ondansetron HCl 4 mg 03/01/25 16:16 Ondansetron 4 Mg/2 Ml Vial IVP 03/31/25 16:15 Q4H PRN PRN Nausea / Vomiting Sodium Chloride 0 ml 03/02/25 06:00 Normal Saline Flush 10 Ml Syr IV 03/02/25 23:59 PRN PRN Sodium Chloride 0 ml 03/02/25 06:00 Normal Saline 10 Ml Vial IJ 03/02/25 23:59 DIRECTED PRN Sterile Water 0 ml 03/02/25 06:00 Water,Injection,Sterile 10 Ml Vial IJ 03/02/25 23:59 DIRECTED PRN PFSH Active Problems Active Problems: Problem Status Onset Code 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 pylori infection On EGD 05/20, repeat EGD 08/20 negative for H.Pylori Surgical History Surgical History History of esophagogastroduodenoscopy (EGD) (08/13/20) S/P colonoscopy (05/19/20) S/P excision of varicocele Tobacco Smoking/Tobacco Use Status: Never Passive smoking exposure: No Alcohol Alcohol Intake: current Alcohol intake frequency: 0-2 drinks per day Alcohol type: wine Counseling provided: provider counseling Details: h/o heavy use Substance Use Substance use: Never Substance use type: does not use Vital Signs and Lab Results Vital Signs Most Recent Vital Signs in EMR: Most Recent Vital Signs Temp Pulse Resp BP Pulse Ox 36.2 C L 101 H 16 154/99 H 99 03/02/25 10:55 03/02/25 10:55 03/02/25 10:55 03/02/25 10:55 03/02/25 10:55 Point of Care Results Point of Care Results: Finger Stick Blood Glucose 95 03/02/25 10:57 Lab Results Blood Type / Crossmatch: 2 No Data to Display Complete Blood Count: 2 No Data to Display Complete Metabolic Panel: 2 No Data to Display Liver Function Panel: 2 No Data to Display Coagulation Panel: 2 No Data to Display Cardiac Panel: 2 No Data to Display Arterial Blood Gas: 2 No Data to Display Venous Blood Gas: 2 No Data to Display Pancreas Panel: 2 No Data to Display Thyroid Panel: 2 No Data to Display Infectious Disease: 2 No Data to Display Blood Cultures: 2 No Data to Display Toxicology Panel: 2 No Data to Display Imaging and Studies Imaging and Studies Study information below may be from another EMR and interpreted by another provider. Please see original notes in EMR for more complete details. EKG Summary: 09/05/24: Exam: Resting ECG Reason for Exam: HTN Patient Location: E HR:98 bpm ECG Measurements Heart Rate 98 AXIS IL 161 P 53 QRSd 86 QRS 49 QT 367 T21 QTc 469 Conclusion Sinus rhythm 98 normal axis no stemi I have reviewed and I agree with the emergency room physician's ECG interpretation. Anesthesia Assessment and Plan Anesthesia History Personal History: No History of Anesthesia Complications Family History: No Family History of Anesthesia Complications Exercise Tolerance Exercise Tolerance: Metabolic Equivalents>4 Pertinent Negatives Pertinent Negatives: No Symptoms of GERD, No Major Cardiovascular Symptoms or Complaints, No Major Pulmonary Symptoms or Complaints and No History of CVA/TIA Cardiac & Pulmonary Exam Cardiac Exam: Normal S1/S2 Heart Sounds Pulmonary Exam: Clear Bilateral Breath Sounds Implantable Cardiac Device Does patient have a Pacemaker or an ICD?: No Airway Exam Known Difficult Airway: No Mallampati Class: 2 Mouth Opening: Normal (> 3cm) Thyromental Distance: Greater than 3 cm Neck Range of Motion: Full ROM Neck Circumference: Normal Teeth Condition: Loose or Chipped Tooth Numberin 1. Chipped ASA Classification ASA Score: ASA 2 Emergency Case?: No NPO Status NPO Status: NPO Clears >2 hours, Solids >8 hours Anesthesia Plan Resuscitation Status: Full Code Anesthesia Technique: General Anesthesia Airway Planned: Natural Airway Monitors Used: Standard Monitors
[2025-03-02 12:37] VITALS: BMI 28.0
--- NOTE | 2025-03-02 12:44 | STOM_PTH ---
PATIENT: Franklin Murray LOC: [facility] U#:[id number] AGE/SX: 55/M ROOM: RE03/02/[address]: Eddie Best MD : 1970 BED: DIS: 03/02/2025 SPEC #: [id number] RECD: 03/02/25 16:10 STATUS: GAMALIEL RE #: [id number] MICHELLE: 03/02/25 12:[address]: Eddie Best DEPT: Surgical Specimen RECD BY: Isidra Lu ENTERED: 03/02/25 16:10 SP TYPE: STOMACH OTHR DR: Smiley Abebe Tissues: 1 - STOMACH BIOPSY 2 - STOMACH BIOPSY 3 - ESOPHAGUS BIOPSY Procedures: GROSS AND MICRO LEVEL 4 Comments: [id number]
[2025-03-02 12:58] VITALS: BP 126/82; PULSE 68; RESP 18; TEMP 36.2; O2SAT 100
[2025-03-02 13:15] VITALS: BP 134/87; PULSE 82; RESP 18; TEMP 36.1; O2SAT 97
--- NOTE | 2025-03-02 14:09 | W.ANESPOSTOP ---
Postoperative Evaluation Date, Time and Location Date Performed: 03/02/25 Time Performed: 13:05 Patient Location: Day Surgery Unit Vital Signs Most Recent Imported Vital Signs: Most Recent Vital Signs Temp Pulse Resp BP Pulse Ox 36.1 C L 82 18 134/87 97 03/02/25 13:15 03/02/25 13:15 03/02/25 13:15 03/02/25 13:15 03/02/25 13:15 Pain Score Most Recent Pain Score: Most Recent Pain Score Pain Level 0 03/02/25 12:58 Assessment Mental Status: Awake (Alert & Oriented to Patient Baseline) Airway and Respiratory Function: Patent airway with normal (patient baseline) respiratory exam Cardiovascular Function: Hemodynamically Stable Hydration Status: Adequately Hydrated Nausea & Vomiting: No Nausea or Vomiting Pain: Pt. Denies Any Pain Peripheral Nerve Block: Patient did not receive a nerve block
== END 2025-03-02 13:30 | disposition home or self-care (01) ==
PROVIDERS: PCP Family Medicine; Visit Provider Surgery
PROC: 0DJ68ZZ Inspection of Stomach, Via Natural or Artificial Opening Endoscopic (ICD-10-PCS; CPT 43235; principal; 2025-03-02 12:00)
DX: K22.70 Barrett's esophagus without dysplasia (principal); K44.9 Diaphragmatic hernia without obstruction or gangrene; K29.70 Gastritis, unspecified, without bleeding; K31.9 Disease of stomach and duodenum, unspecified; K22.89 Other specified disease of esophagus
CPT/HCPCS: 43239; 88305; J2003; J2704

== ENCOUNTER 2025-03-19 00:18 | Emergency (ER) | payer OTHER, SELFPAY ==
--- NOTE | 2025-03-19 00:03 | W.ED.GENAD ---
Discharge Plan Disposition Patient Disposition: Eloped Condition: Good Discharge Details Clinical Impression: Alcohol intoxication, Scalp hematoma, Abrasion of left elbow, initial encounter, Abrasion, left knee, initial encounter Primary Care Provider: Smiley Abebe ED Provider: Hasmukh Carreno [place] Meds and New Rx's Prescriptions: Continued losartan 50 mg tablet 50 mg PO BID Qty: 60 5RF metformin 500 mg tablet 1,000 mg PO BID Qty: 120 12RF aspirin 81 mg tablet,delayed release (DR/EC) 81 mg PO DAILY Discharge Instructions Instructions: Alcohol use - when is drinking a problem?, Taking care of cuts, scrapes, and puncture wounds, Alcohol Intoxication ED Additional Instructions: You were seen in the ED after a presumed fall. Your alcohol level was found to be quite high. Your other labs were otherwise reassuring. Imaging of your head and cervical spine revealed no significant acute traumatic injury. You were observed in the ED overnight. Please keep your abrasions clean and dry, and use antibiotic ointment and bandages to keep covered until healed. Follow-up with primary care in the next 1 to 2 weeks if any issues. Return to ED for severe worsening headache, neurologic change, other concerns. Referrals: Smiley Abebe MD [Primary Care Provider, Medicine] HPI General Mode of arrival: EMS. Date/Time Provider Initiated Documentation: 03/19/25 00:20. Limitations to Documentation: altered mental status. Information obtained by: patient, EMS, RN notes reviewed and old records reviewed. HPI Narrative: Patient presents to ED by ambulance after being found in a parking lot with scrapes on his knees and elbow, large scalp hematoma and altered mental status. Per EMS he was quite altered on scene and somewhat agitated. Has improved during transport. Does not have any recollection of what occurred and does not remember falling. Blood sugar reported to be normal in the field. Does admit to alcohol but is not quantifying. He denies having pain anywhere. He denies any difficulty breathing. He is calm and cooperative here. Related Data Home Medications ?Medication ?Instructions ?Recorded ?Confirmed aspirin 81 mg tablet,delayed 81 mg PO DAILY 11/21/24 03/19/25 release losartan 50 mg tablet 50 mg PO BID #60 tabs 11/21/24 03/19/25 metformin 500 mg tablet 1,000 mg (2 x 500 mg) PO BID #120 11/21/24 03/19/25 tabs Previous Rx's ?Medication ?Instructions ?Recorded losartan 50 mg tablet 50 mg PO BID #60 tabs 11/21/24 metformin 500 mg tablet 1,000 mg (2 x 500 mg) PO BID #120 11/21/24 tabs Allergies Allergy/AdvReac Type Severity Reaction Status Date / Time lisinopril AdvReac Mild Dry Cough, Verified 03/19/25 00:08 @10 mg+ General KENZIE: 3 Exam Narrative Exam Narrative: Const: WDWN male in NAD. VS per triage. HEENT: NC. Large posterior scalp hematoma. Face normal. Neck: Supple. Trachea midline. No cervical spine tenderness. Lungs: Normal respiratory effort. Lungs are clear. No chest wall tenderness. Cor: RRR without murmur. Good radial pulses. GI: Soft/ND/NT. Back: No TLS tenderness. Neuro: A+O x 3. Normal speech, mildly altered with no recollection of events. Cranial nerves II - XII grossly intact. No gross motor or sensory deficit. Ext: No C/C/E. No deformity or tenderness with normal ROM. Skin: Abrasions to left knee and left elbow. Medical Decision Making Patient presenting to ED with altered mental status, presumed fall with no recollection of events. He is currently awake and alert with no complaint. Has been drinking alcohol tonight. Given evidence of head injury will obtain imaging. IV placed and labs sent, fluids started. 01:30 - Patient's labs significant for an alcohol level of 326. Glucose is fine at 116. He does have an anion gap at 18.7 and slightly low mag at 1.6. The gap likely related to alcohol ketoacidosis. He has received fluids. Preliminary reads on CT head and cervical spine are negative except for scalp hematoma. No evidence of skull fracture or intracranial bleed. Patient did attempt to leave but was redirected easily and informed that because of his alcohol level he would need to stay in ED until morning for sober exam. 05:15 - Patient has eloped from ED with staff knowing. Had pulled IV out earlier and had been sleeping. Lab Data Lab results reviewed: Yes I reviewed the patient's lab results. 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 pylori infection On EGD 05/20, repeat EGD 08/20 negative for H.Pylori Surgical History History of esophagogastroduodenoscopy (EGD) (03/2025) S/P colonoscopy (05/19/20) S/P excision of varicocele Family History Mother Hypertension Anxiety Father Medical history unknown Brother , 58 Prostate cancer Brother Hypertension Brother Hypertension Brother Colon cancer Maternal Grandfather , at 70 Dementia Alcohol abuse Maternal Grandmother , at 84 Hypertension Hyperlipidemia Heart disease Paternal Grandfather COPD (chronic obstructive pulmonary disease) Paternal Grandmother COPD (chronic obstructive pulmonary disease) Social History Smoking/Tobacco Use Status: Never Smoking risk assessment performed?: Yes Alcohol Intake: current Alcohol Intake frequency: 0-2 drinks per day Alcohol type: wine Counseling provided: provider counseling Details: h/o heavy use Drug use: Never Substance use type: does not use Household members: none Housing: apartment Number of Children: 0 current occupation: [employer] Current gender identity: male What is your relationship status?: Panel score (0-1 are the most socially isolated patients): 0 What type of physical activity do you participate in: independent ambulation Do you feel safe at home: Yes Do you feel safe in your relationship?: Yes
[2025-03-19 00:09] VITALS: BP 161/90; PULSE 103; RESP 16; TEMP 35; O2SAT 99
[2025-03-19 00:15] VITALS: RESP 21
[2025-03-19] MEDS: Normal Saline 1,000 ML 1000 ML IV (00:30)
[2025-03-19 00:31] LABS: Abs Immature Grans 0.02 10^3/uL (0.0-0.06); Absolute Basophil Count 0.03 10^3/uL (0.0-0.2); Absolute Eosinophil Count 0.15 10^3/uL (0.0-0.7); Absolute Lymphocyte Count 3.34 10^3/uL (1.2-3.4); Absolute Monocyte Count 0.58 10^3/uL (0.1-0.8); Absolute Neutrophil Count 1.98 10^3/uL (1.2-6.7); Basophils % 0.5 %; Eosinophils % 2.5 %; HCT 40.9 % (40.0-50.0); Immature Grans % 0.3 %; Lymphocytes % 54.8 %; MCH 34.5 pg (27.0-33.0); MCHC 34.2 % (32.0-36.0); MCV 101 fL (80-95); MPV 9.3 fL (8.0-11.0); Monocytes % 9.5 %; Neutrophils % 32.4 %; Platelet Count 319 10^3/uL (130-400); RBC 4.06 10^6/uL (4.36-5.78); RDW 11.7 % (11.8-14.1)
--- NOTE | 2025-03-19 00:49 | DI.CT_ITS ---
Exam(s) CT HEAD CERVICAL SPINE WO EXAM: CT HEAD CERVICAL SPINE WO CLINICAL HISTORY: AMS with large scalp hematoma. TECHNIQUE: Imaging Protocol: Axial computed tomography images with coronal and sagittal reformatted images were created and reviewed COMPARISON: No exams were available for comparison FINDINGS: CT Head: Ventricles and Extra axial spaces: Normal in size and morphology for the patient's age. Hemorrhage: None. Cerebral parenchyma: There is no evidence of an acute territorial infarct. There is no mass effect. Midline shift: None. Brainstem/Cerebellum: Normal. Calvarium: Normal. Visualized Paranasal sinuses/Mastoids: Clear. Soft Tissues: Unremarkable. CT Cervical Spine: Bones: No acute fracture or subluxation. Age-appropriate degenerative changes are present in the cervical spine. Soft Tissues: Unremarkable. Lung Apices: Clear. IMPRESSION: 1. No acute intracranial process. 2. No acute fracture or subluxation in the cervical spine. 3. The preliminary [facility] report was reviewed. RADIATION DOSE DELIVERED: 1,189.28mGy.cm Total DLP DATA REPOSITORY: All CT scans at this facility are submitted to the National Radiology Data Registry (NRDR) Dose Index Registry (DIR) with the [employer] (A[employer]). RADIATION OPTIMIZATION: All CT scans at this facility use at least one of these dose optimization techniques: automated exposure control; mA and/or kV adjustment per patient size (includes targeted exams where dose is matched to clinical indication); or iterative reconstruction.
[2025-03-19 00:51] LABS: ALT 55 U/L (16-63); AST 41 U/L (15-37); Alkaline Phosphatase 74 U/L (46-116); Anion Gap 18.7 mmol/L (3-11); BUN 12 mg/dL (7-18); Bilirubin, Total 0.6 mg/dL (0.2-1.0); CO2 22.3 mmol/L (21.0-32.0); Calcium 9.2 mg/dL (8.5-10.1); Chloride 97 mmol/L (98-107); Estimated GFR 88.33 (mL/min/1.73m2); Glucose 116 mg/dL (74-106); Magnesium 1.6 mg/dL (1.8-2.4); Potassium 4.3 mmol/L (3.5-5.1); Sodium 138 mmol/L (136-145); Total Protein 8.8 g/dL (6.4-8.2)
--- NOTE | 2025-03-19 01:32 | DI.[facility]_ITS ---
PROCEDURE INFORMATION: Exam: CT Head Without Contrast Exam date and time: 03/19/2025 12:38 AM Age: 55 years old Clinical indication: Altered mental status/memory loss; Other: AMS with large scalp hematoma TECHNIQUE: Imaging protocol: Computed tomography of the head without contrast. Radiation optimization: All CT scans at this facility use at least one of these dose optimization techniques: automated exposure control; mA and/or kV adjustment per patient size (includes targeted exams where dose is matched to clinical indication); or iterative reconstruction. COMPARISON: No relevant prior studies available. FINDINGS: Brain: No acute intracranial hemorrhage, mass-effect, midline shift, or extra-axial collection is seen. The knight white matter differentiation appears preserved. Cerebral ventricles: The ventricular system and basilar cisterns appear appropriate in size and configuration. Paranasal sinuses: The visualized paranasal sinuses appear well-aerated. Mastoid air cells: The mastoid air cells appear well-aerated. Auditory system: The middle ear cavities appear clear. Orbital cavities: The globes and intraorbital structures appear grossly intact. Bones: The bony calvarium appears intact. No depressed skull fracture is seen. Soft tissues: There is a left parietal scalp contusion. IMPRESSION: No acute intracranial hemorrhage or depressed skull fracture. PROCEDURE INFORMATION: Exam: CT Cervical Spine Without Contrast Exam date and time: 03/19/2025 12:38 AM Age: 55 years old Clinical indication: Altered mental status/memory loss; Other: AMS with large scalp hematoma TECHNIQUE: Imaging protocol: Computed tomography of the cervical spine without contrast. Radiation optimization: All CT scans at this facility use at least one of these dose optimization techniques: automated exposure control; mA and/or kV adjustment per patient size (includes targeted exams where dose is matched to clinical indication); or iterative reconstruction. COMPARISON: No relevant prior studies available. FINDINGS: Bones/joints: No acute cervical fracture or malalignment is seen. C2-C3: Disc height preserved. No central canal narrowing or significant neural foraminal narrowing. Moderate right-sided facet arthrosis. C3-C4: Loss of disc height with anterior osteophyte formation, posterior osteophytic ridging, and bilateral uncovertebral hypertrophy. Severe left-sided facet arthrosis. No central canal narrowing. Moderate bilateral foraminal narrowing. C4-C5: Mild loss of disc height. Anterior osteophyte formation. Posterior osteophytic ridging with bilateral uncovertebral hypertrophy. Severe left-sided facet arthrosis. No central canal narrowing. Mild left and moderate-severe right-sided foraminal narrowing. C5-C6: Loss of disc height with endplate irregularity, anterior osteophyte formation, posterior osteophytic ridging, and bilateral uncovertebral hypertrophy. No central canal narrowing. Moderate left-sided foraminal narrowing. Severe right-sided foraminal narrowing. C6-C7: Loss of disc height with endplate irregularity, anterior osteophyte formation, posterior osteophytic ridging, and uncovertebral hypertrophy on the left. No central canal narrowing. Mild-moderate bilateral foraminal narrowing. C7-T1: Disc height preserved. No central canal narrowing or neural foraminal narrowing. Lungs: The lung apices appear clear. Soft tissues: Within the limits of the exam, no gross soft tissue fluid collection is seen in the neck. IMPRESSION: No acute cervical fracture or malalignment is seen. Dictated and Authenticated by: Yonny El MD. Orderin Wai Noe MD
[2025-03-19 01:56] VITALS: BP 119/83; PULSE 100; RESP 22; TEMP 36.3; O2SAT 98
== END 2025-03-19 05:16 | disposition left against medical advice (07) ==
PROVIDERS: Emergency Provider Emergency Medicine; PCP Family Medicine
DX: S00.03XA Contusion of scalp, initial encounter (principal); S50.312S Abrasion of left elbow, sequela; S80.212A Abrasion, left knee, initial encounter; F10.120 Alcohol abuse with intoxication, uncomplicated; Z79.82 Long term (current) use of aspirin; Z79.84 Long term (current) use of oral hypoglycemic drugs; W18.39XA Other fall on same level, initial encounter; Y93.89 Activity, other specified; Y92.481 Parking lot as the place of occurrence of the external cause; Y90.8 Blood alcohol level of 240 mg/100 ml or more; I10 Essential (primary) hypertension; E13.40 Other specified diabetes mellitus with diabetic neuropathy, unspecified
CPT/HCPCS: 36415; 80053; 96360; 99284; 70450; 72125; 80320; 83735; 85025